=== PATIENT | female | born 1955 | race Caucasian/White ===

== ENCOUNTER 2017-11-22 06:45 | Observation (INO) | payer BC ==
[2017-11-22 07:23] LABS: CHLORIDE,CL 102 mEq/L (98-106); SODIUM,NA 141 mEq/L (136-145)
--- NOTE | 2017-11-22 07:31 | EDM.PDOC ---
ED HPI GENERAL MEDICAL PROBLEM - General Chief Complaint: Chest Pain Stated Complaint: pressure, ? [place] Time Seen by Provider: 11/22/17 07:04 Source of Information: Reports: Patient History Limitations: Reports: No Limitations - History of Present Illness INITIAL COMMENTS - FREE TEXT/NARRATIVE: This patient is a 62 year old female that presents to the ER. Patient reports that started about 3 days ago with achy pressure in her middle back between the shouder blades. She reports the pressure sensation wrapped around bilateral sides into her chest. She reports the pain is also to the left neck, this pain is easily manipulated with ROM of the neck. Patient reports that she has also been nauseated the last 3 days. Patient reports that the pain comes and goes, waxes and wanes. She reports the pain yesterday afternoon while in her kitchen was a 8/10. She reports that she does drink alcohol about 3 cocktails a day. She denies smoking. She reports history of HTN and high cholesterol. She reports that she has history of ulcer several years ago. The patient is alert and oriented. She is conversing in full and complete sentences without difficulty. The patient reports her pain in the ER is 2 out of 10 on scale. The patient does report she has had pain in Epigastric region that feels like pressure, gnawing, and acid reflux she reports. She reports this has been there for about 3 days when this other pain began as well per patient. She reports she has also had diarrhea for about 2 weeks. Onset Date: 11/19/17 Duration: Day(s): (3) Location: Reports: Chest, Abdomen, Back Quality: Reports: Pressure Severity: Mild Improves with: Reports: None Worsens with: Reports: None Associated Symptoms: Reports: Chest Pain. Denies: Confusion, Cough, cough w sputum Upper Back Pain Score (Numeric/FACES): 3 - Related Data Allergies Allergy/AdvReac Type Severity Reaction Status Date / Time No Known Allergies Allergy Verified 11/22/17 06:50 Home Meds: Home Meds . [No Known Home Meds] 11/22/17 [History] Past Medical History - Past Surgical History GI Surgical History: Reports: Appendectomy, Cholecystectomy Female Surgical History: Reports: Hysterectomy Social & Family History - Tobacco Use Smoking Status *Q: Former Smoker Used Tobacco, but Quit: Yes Month/Year Tobacco Last Used: 08/2017 - Caffeine Use Caffeine Use: Reports: Coffee - Alcohol Use Days Per Week of Alcohol Use: 7 Number of Drinks Per Day: 7 Total Drinks Per Week: 49 - Recreational Drug Use Recreational Drug Use: No ED ROS GENERAL - Review of Systems Review Of Systems: See Below Constitutional: Reports: No Symptoms HEENT: Reports: No Symptoms Respiratory: Reports: No Symptoms. Denies: Shortness of Breath Cardiovascular: Reports: Chest Pain. Denies: Dyspnea on Exertion, Edema, Lightheadedness, Palpitations, Syncope Endocrine: Reports: No Symptoms GI/Abdominal: Reports: Abdominal Pain (Epigastric), Diarrhea, Nausea. Denies: Black Stool, Bloody Stool, Constipation, Decreased Appetite, Difficulty Swallowing, Distension, Stool Incontinence, Vomiting : Reports: No Symptoms Musculoskeletal: Reports: Neck Pain (left lateral neck), Back Pain (between shoulder blades) Skin: Reports: No Symptoms Neurological: Reports: No Symptoms Psychiatric: Reports: No Symptoms Hematologic/Lymphatic: Reports: No Symptoms Immunologic: Reports: No Symptoms ED EXAM, GENERAL - Physical Exam Exam: See Below Exam Limited By: No Limitations General Appearance: Alert, WD/WN, No Apparent Distress Eye Exam: Bilateral Eye: Normal Inspection, PERRL Ears: Normal External Exam, Normal Canal, Hearing Grossly Normal, Normal TMs Ear Exam: Bilateral Ear: Auricle Normal, Canal Normal, TM normal Nose: Normal Inspection, Normal Mucosa, No Blood Throat/Mouth: Normal Inspection, Normal Lips, Normal Teeth, Normal Gums, Normal Oropharynx, Normal Voice, No Airway Compromise Head: Atraumatic, Normocephalic Neck: Normal Inspection, Supple, Non-Tender, Full Range of Motion, Other (Pain of the left lateral neck is made worse with ROM. Easily manipulated on exam. ) Respiratory/Chest: No Respiratory Distress, Lungs Clear, Normal Breath Sounds, No Accessory Muscle Use, Chest Non-Tender Cardiovascular: Normal Peripheral Pulses, Regular Rate, Rhythm, No Edema, No Gallop, No JVD, No Murmur, No Rub GI/Abdominal: Normal Bowel Sounds, Soft, No Organomegaly, No Distention, No Abnormal Bruit, No Mass, Pelvis Stable, Tender (Epigastric). No: Guarding, Rebound, Hernia, Hepatomegaly, Splenomegaly (Female) Exam: Deferred Rectal (Female) Exam: Deferred Back Exam: Normal Inspection, Full Range of Motion. No: CVA Tenderness (L), CVA Tenderness (R), Decreased Range of Motion, Muscle Spasm, Paraspinal Tenderness, Vertebral Tenderness Extremities: Normal Inspection, Normal Range of Motion, Non-Tender, No Pedal Edema, Normal Capillary Refill Neurological: Alert, Oriented, Normal Cognition, Normal Gait, No Motor/Sensory Deficits Psychiatric: Normal Affect, Normal Mood Skin Exam: Warm, Dry, Intact, Normal Color, No Rash Lymphatic: No Adenopathy EKG INTERPRETATION EKG Date: 11/22/17 Time: 06:46 Rhythm: NSR Rate (Beats/Min): 81 [place]: Normal ST-T: Normal QT: Normal Comparison: NA - No Prior EKG Course - Vital Signs Last Recorded V/S: Last Vital Signs Temp 96.3 F 11/22/17 06:50 Pulse 98 11/22/17 10:16 Resp 18 11/22/17 10:16 BP 172/88 H 11/22/17 10:16 Pulse Ox 98 11/22/17 10:16 - Orders/Labs/Meds Orders: Active Orders 24 hr Category Date Time Status Patient Status [ADT] Routine ADT 11/22/17 16:01 Active Ambulate [RC] ASDIRECTED Care 11/22/17 16:01 Active Ambulate [RC] PER UNIT ROUTINE Care 11/22/17 16:01 Active EKG Documentation Completion [RC] STAT Care 11/22/17 12:55 Active Notify Provider Vital Signs [RC] ASDIRECTED Care 11/22/17 16:01 Active Oxygen Therapy [RC] PRN Care 11/22/17 16:01 Active VTE/DVT Education [RC] PER UNIT ROUTINE Care 11/22/17 16:01 Active Vital Signs [RC] Q4H Care 11/22/17 16:01 Active Clear Liquid Diet [DIET] Diet 11/22/17 Dinner Active Abdomen Pelvis w Cont [CT] Stat Exams 11/22/17 13:10 Taken Chest 2V [CR] Stat Exams 11/22/17 06:57 Taken C-REACTIVE PROTEIN [CHEM] DAILY Lab 11/23/17 05:00 Ordered CBC WITH AUTO DIFF [HEME] DAILY Lab 11/23/17 05:00 Ordered CBC WITH AUTO DIFF [HEME] DAILY Lab 11/24/17 05:00 Ordered COMPREHENSIVE METABOLIC PN,CMP [CHEM] DAILY Lab 11/23/17 05:00 Ordered URINALYSIS W/MICROSCOPIC [UA W/MICROSCOPIC] [URIN] Stat Lab 11/22/17 07:36 Ordered Enoxaparin [Lovenox] Med 11/22/17 16:00 Active 40 mg SUBCUT Q24H Morphine Med 11/22/17 16:01 Active 2 mg IVPUSH Q2H PRN Ondansetron [Zofran] Med 11/22/17 16:01 Active 4 mg IV Q6H PRN Pantoprazole [ProTONIX IV] 80 mg Med 11/22/17 16:01 Active Sodium Chloride 0.9% [Normal Saline] 100 ml IV .CONTINUOUS Sodium Chloride 0.9% [Normal Saline] 1,000 ml Med 11/22/17 16:01 Active IV ASDIRECTED Resuscitation Status Routine Resus Stat 11/22/17 15:38 Ordered Medication Orders Enoxaparin Sodium (Lovenox) 40 mg SUBCUT Q24H ARIC Pantoprazole Sodium 80 mg/ (Sodium Chloride) 100 mls @ 10 mls/hr IV .CONTINUOUS ARIC Sodium Chloride (Normal Saline) 1,000 mls @ 90 mls/hr IV ASDIRECTED ARIC Morphine Sulfate (Morphine) 2 mg IVPUSH Q2H PRN PRN Reason: Pain (severe 7-10) Ondansetron HCl (Zofran) 4 mg IV Q6H PRN PRN Reason: Nausea/Vomiting Labs: Laboratory Tests 11/22/17 11/22/17 11/22/17 Range/Units 06:50 06:57 06:57 WBC 12.6 H (5.0-10.0) 10^3/uL RBC 4.53 (4.00-5.50) 10^6/uL Hgb 14.9 (12.0-16.0) g/dL Hct 44.5 (37.0-47.0) % MCV 98.2 H (82.0-94.0) fL MCH 32.9 H (27.0-32.0) pg MCHC 33.5 (33.0-38.0) g/dL RDW Coeff of Jacqueline 13.8 (11.0-15.0) % Plt Count 358 (150-400) 10^3/uL Neut % (Auto) 74.4 (35-85) % Lymph % (Auto) 17.8 (10-55) % [place] % (Auto) 6.0 (0-16) % Eos % (Auto) 1.6 (0-5) % Baso % (Auto) 0.2 (0-3) % Neut # (Auto) 9.33 H (1.80-7.00) 10^3/uL Lymph # (Auto) 2.24 (1.00-4.80) 10^3/uL [place] # (Auto) 0.75 (0.00-0.80) 10^3/uL Eos # (Auto) 0.20 (0.00-0.45) 10^3/uL Baso # (Auto) 0.03 10^3/uL PT 9.7 (9.7-12.3) SEC INR 0.93 (0.92-1.18) D-Dimer, Quantitative < 0.19 (0.00-0.50) Sodium 141 (136-145) mEq/L Potassium 4.1 (3.5-5.0) mEq/L Chloride 102 (98-106) mEq/L Carbon Dioxide 29 (21-32) mmol/L BUN 12 (7-18) mg/dL Creatinine 0.9 (0.6-1.0) mg/dL Est Cr Clr Drug Dosing 47.65 mL/min Estimated GFR (MDRD) > 60 (>=60) mL/min Glucose 134 H (75-99) mg/dL Calcium 8.9 (8.4-10.1) mg/dL Lactate Dehydrogenase 220 H (100-190) U/L Creatine Kinase 86 (21-215) U/L Troponin I < 0.017 (0.00-0.06) ng/mL Amylase 54 (25-115) U/L Urine Color (YELLOW) Urine Appearance (CLEAR) Urine pH (4.5-8.0) Ur Specific Outing (1.003-1.020) Urine Protein (NEGATIVE) mg/dL Urine Glucose (UA) (NEGATIVE) mg/dL Urine Ketones (NEGATIVE) mg/dL Urine Occult Blood (NEGATIVE) Urine Nitrite (NEGATIVE) Urine Bilirubin (NEGATIVE) Urine Urobilinogen (0.2-1.0) EU/dL Ur Leukocyte Esterase (NEGATIVE) Urine RBC (0-5) /HPF Urine WBC (0-5) /HPF 11/22/17 11/22/17 11/22/17 Range/Units 07:36 09:08 11:00 WBC (5.0-10.0) 10^3/uL RBC (4.00-5.50) 10^6/uL Hgb (12.0-16.0) g/dL Hct (37.0-47.0) % MCV (82.0-94.0) fL MCH (27.0-32.0) pg MCHC (33.0-38.0) g/dL RDW Coeff of Jacqueline (11.0-15.0) % Plt Count (150-400) 10^3/uL Neut % (Auto) (35-85) % Lymph % (Auto) (10-55) % [place] % (Auto) (0-16) % Eos % (Auto) (0-5) % Baso % (Auto) (0-3) % Neut # (Auto) (1.80-7.00) 10^3/uL Lymph # (Auto) (1.00-4.80) 10^3/uL [place] # (Auto) (0.00-0.80) 10^3/uL Eos # (Auto) (0.00-0.45) 10^3/uL Baso # (Auto) 10^3/uL PT (9.7-12.3) SEC INR (0.92-1.18) D-Dimer, Quantitative (0.00-0.50) Sodium (136-145) mEq/L Potassium (3.5-5.0) mEq/L Chloride (98-106) mEq/L Carbon Dioxide (21-32) mmol/L BUN (7-18) mg/dL Creatinine (0.6-1.0) mg/dL Est Cr Clr Drug Dosing mL/min Estimated GFR (MDRD) (>=60) mL/min Glucose (75-99) mg/dL Calcium (8.4-10.1) mg/dL Lactate Dehydrogenase (100-190) U/L Creatine Kinase (21-215) U/L Troponin I < 0.017 < 0.017 (0.00-0.06) ng/mL Amylase (25-115) U/L Urine Color Yellow (YELLOW) Urine Appearance Clear (CLEAR) Urine pH 6.0 (4.5-8.0) Ur Specific Outing 1.025 H (1.003-1.020) Urine Protein Negative (NEGATIVE) mg/dL Urine Glucose (UA) Negative (NEGATIVE) mg/dL Urine Ketones Negative (NEGATIVE) mg/dL Urine Occult Blood Negative (NEGATIVE) Urine Nitrite Negative (NEGATIVE) Urine Bilirubin Negative (NEGATIVE) Urine Urobilinogen 0.2 (0.2-1.0) EU/dL Ur Leukocyte Esterase Negative (NEGATIVE) Urine RBC Not seen (0-5) /HPF Urine WBC Not seen (0-5) /HPF Meds: Medications Generic Name Dose Route Start Last Admin Trade Name Freq PRN Reason Stop Dose Admin Enoxaparin Sodium 40 mg 11/22/17 16:00 Lovenox SUBCUT Q24H ARIC Pantoprazole Sodium 80 mg/ 100 mls @ 10 mls/hr 11/22/17 16:01 Sodium Chloride IV .CONTINUOUS ARIC Sodium Chloride 1,000 mls @ 90 mls/hr 11/22/17 16:01 Normal Saline IV ASDIRECTED [facility] Morphine Sulfate 2 mg 11/22/17 16:01 Morphine IVPUSH Q2H PRN Pain (severe 7-10) Ondansetron HCl 4 mg 11/22/17 16:01 Zofran IV Q6H PRN Nausea/Vomiting Discontinued Medications Generic Name Dose Route Start Last Admin Trade Name Freq PRN Reason Stop Dose Admin Iopamidol 100 ml 11/22/17 13:31 11/22/17 13:41 Isovue-300 (61%) IVPUSH 11/22/17 13:32 100 ml ONETIME ONE Administration Morphine Sulfate 4 mg 11/22/17 11:33 11/22/17 11:52 Morphine IVPUSH 11/22/17 11:34 4 mg ONETIME ONE Administration Morphine Sulfate 4 mg 11/22/17 13:13 11/22/17 13:25 Morphine IVPUSH 11/22/17 13:14 4 mg ONETIME ONE Administration Ondansetron HCl 4 mg 11/22/17 11:33 11/22/17 11:53 Zofran IVPUSH 11/22/17 11:34 4 mg NOW STA Administration Ondansetron HCl 4 mg 11/22/17 13:13 11/22/17 13:25 Zofran IVPUSH 11/22/17 13:14 4 mg NOW STA Administration Pantoprazole Sodium 80 mg 11/22/17 08:04 11/22/17 09:12 Protonix Iv IVPUSH 11/22/17 08:05 80 mg ONETIME ONE Administration Sucralfate 1 gm 11/22/17 11:33 11/22/17 11:52 Carafate PO 11/22/17 11:34 1 gm ONETIME ONE Administration - Radiology Interpretation Free Text/Narrative:: CXR: No acute findings. - Re-Assessments/Exams Free Text/Narrative Re-Assessment/Exam: 11/22/17 08:05 Patient pain described in epigastric region with gnawing and nausea to the back. Patent has mild wbc elevation. I will ct the patient due to these findings. Ulcer is strong possible diagnosis. Perforation is less likely, but possible. Her BP is elevated, HR is normal. Vitals stable. The patient pain is easily manipulated by palpating the epigastric region. I do not believe this cardiac in nature with pain being manipulated. 11/22/17 08:09 The patient has refused the CT scan. So, at this time will treat as ulcer. I will give her Protonix IV. I will redraw timed cardiac enzymes of troponin. If these are negative, will discharge home. Will educate patient to return for , worsening of conditions, or any other concerns. I will have her see her PCP for close followup on Friday or GI for possible Ulcer. Explained to the patient risks of not having CT. I encouraged her to have this test, but she refuses. 11/22/17 12:42 Patient reports after Carafate, Zofran, Morphine that her pain is completely resolved. She has had three negative troponins. I will discharge patient. 11/22/17 13:32 The patient now at discharge reports he pain has returned and is a 9/10. I have talked to the patient again. Again, I encourage her to have a CT scan performed. Now, she will have this test done. She has agreed to have it done. I have given the patient more pain medication, delayed her discharge, and will CT. Patient reports she believed the Carafate made her pain worse. 11/22/17 15:33 I have reviewed patients ct report with radiologist. The patient has told me that she does not want to know about ct results if any cancer concerns are involved. She has stressed that she does not want me to tell her this information. I will allow her PCP to discuss further results with patient. So, I have told her that she has a fatty liver on ct and no other explanation for her epigastric pain at this time via CT. I did tell her that I believe ulcer is a possibility for her pain. I did offer her admission due to her return of pain. I feel that if she goes home, pain will return and she will return to the ER. The patient reports that she does not see doctors or take medications because she does not want to know anything bad with her health. She has accepted admission. Patient did attempt to eat toast and reported it made her nauseated. Departure - Departure Time of Disposition: 12:39 Disposition: Refer to Observation Condition: Fair Clinical Impression: Esophagitis, Atypical chest pain, Peptic ulcer Abdominal pain Qualifiers: Abdominal location: epigastric Qualified Code(s): R10.13 - Epigastric pain - My Orders Last 24 Hours: My Active Orders 11/22/17 06:57 Chest 2V [CR] Stat 11/22/17 07:36 URINALYSIS W/MICROSCOPIC [UA W/MICROSCOPIC] [URIN] Stat 11/22/17 12:55 EKG Documentation Completion [RC] STAT 11/22/17 13:10 Abdomen Pelvis w Cont [CT] Stat 11/22/17 15:38 Resuscitation Status Routine 11/22/17 16:00 Enoxaparin [Lovenox] 40 mg SUBCUT Q24H 11/22/17 16:01 Patient Status [ADT] Routine Ambulate [RC] ASDIRECTED Ambulate [RC] PER UNIT ROUTINE Notify Provider Vital Signs [RC] ASDIRECTED Oxygen Therapy [RC] PRN VTE/DVT Education [RC] PER UNIT ROUTINE Vital Signs [RC] Q4H Morphine 2 mg IVPUSH Q2H PRN Ondansetron [Zofran] 4 mg IV Q6H PRN Pantoprazole [ProTONIX IV] 80 mg Sodium Chloride 0.9% [Normal Saline] 100 ml IV .CONTINUOUS Sodium Chloride 0.9% [Normal Saline] 1,000 ml IV ASDIRECTED 11/22/17 Dinner Clear Liquid Diet [DIET] 11/23/17 05:00 C-REACTIVE PROTEIN [CHEM] DAILY CBC WITH AUTO DIFF [HEME] DAILY COMPREHENSIVE METABOLIC PN,CMP [CHEM] DAILY 11/24/17 05:00 CBC WITH AUTO DIFF [HEME] DAILY - Assessment/Plan Last 24 Hours: My Active Orders 11/22/17 06:57 Chest 2V [CR] Stat 11/22/17 07:36 URINALYSIS W/MICROSCOPIC [UA W/MICROSCOPIC] [URIN] Stat 11/22/17 12:55 EKG Documentation Completion [RC] STAT 11/22/17 13:10 Abdomen Pelvis w Cont [CT] Stat 11/22/17 15:38 Resuscitation Status Routine 11/22/17 16:00 Enoxaparin [Lovenox] 40 mg SUBCUT Q24H 11/22/17 16:01 Patient Status [ADT] Routine Ambulate [RC] ASDIRECTED Ambulate [RC] PER UNIT ROUTINE Notify Provider Vital Signs [RC] ASDIRECTED Oxygen Therapy [RC] PRN VTE/DVT Education [RC] PER UNIT ROUTINE Vital Signs [RC] Q4H Morphine 2 mg IVPUSH Q2H PRN Ondansetron [Zofran] 4 mg IV Q6H PRN Pantoprazole [ProTONIX IV] 80 mg Sodium Chloride 0.9% [Normal Saline] 100 ml IV .CONTINUOUS Sodium Chloride 0.9% [Normal Saline] 1,000 ml IV ASDIRECTED 11/22/17 Dinner Clear Liquid Diet [DIET] 11/23/17 05:00 C-REACTIVE PROTEIN [CHEM] DAILY CBC WITH AUTO DIFF [HEME] DAILY COMPREHENSIVE METABOLIC PN,CMP [CHEM] DAILY 11/24/17 05:00 CBC WITH AUTO DIFF [HEME] DAILY Plan: PLEASE SEE RN NOTE FOR PFSH. PLEASE USE ER H&P ADMIT H&P.
[2017-11-22] MEDS ORDERED: Pantoprazole 40 MG Vial IVPUSH ONE (08:04)
[2017-11-22] MEDS ORDERED: Morphine 4 MG/ML Syringe IVPUSH ONE ×2 (11:33→13:13)
[2017-11-22] MEDS ORDERED: Ondansetron 4 MG/2 ML SDV IVPUSH STA ×2 (11:33→13:13)
[2017-11-22] MEDS ORDERED: Sucralfate Suspension 1 GM/10 ML Cup PO ONE (11:33)
[2017-11-22] MEDS ORDERED: Iopamidol 612 MG/ML 100 ML Bottle IVPUSH ONE (13:31)
[2017-11-22] MEDS ORDERED: Enoxaparin 40 MG/0.4 ML Syringe SUBCUT SCH (16:00)
[2017-11-22] MEDS ORDERED: Morphine 2 MG/ML Syringe IVPUSH PRN (16:01)
[2017-11-22] MEDS ORDERED: Ondansetron 4 MG/2 ML SDV IV PRN (16:01)
[2017-11-22] MEDS: Pantoprazole 80 MG in Sodium Chloride 0.9% 100 ML IV SCH (17:29)
[2017-11-22] MEDS: Sodium Chloride 0.9% 1,000 ML IV SCH (17:30)
[2017-11-23] MEDS: Sodium Chloride 0.9% 1,000 ML IV SCH (04:46)
[2017-11-23] MEDS: Pantoprazole 80 MG in Sodium Chloride 0.9% 100 ML IV SCH (04:53)
[2017-11-23 08:28] LABS: CHLORIDE,CL 106 mEq/L (98-106); SODIUM,NA 142 mEq/L (136-145)
--- NOTE | 2017-11-23 10:05 | PCM.DCSUM1 ---
Discharge Summary - Hospital Course HPI Initial Comments: This patient is a 62 year old female that was admitted yesterday for uncontrolled abdominal pain. She had pain to the epigastric region that was made worse with eating, and palpation of the epigastric region. The patient today has improvmement in labs. Her labs today are unremarkable. The patient was placed on a protonix gtt. I believe she has a ulcer. Her diet was also changed to clear liquid. She reports this morning that her pain is completely resolved. She reports that she has had zero pain since yesterday. She reports she believes the Protonix gtt and diet change has been what has helped her. She reports she has not felt this good in weeks. She reports that she is ready to go home. She does not want to stay for admit continued. She reports that she will see her PCP on Friday. I have educated the patient that she may return to the ER for worsening of condition or any other emergent concerns. - Discharge Data Discharge Date: 11/23/17 Discharge Disposition: Home, Self-Care 01 Condition: Good - Patient Instructions Diet: Clear Liquid Diet Activity: As Tolerated Showering/Bathing: November Shower Notify Provider of: Fever, Increased Pain, Nausea and/or Vomiting - Discharge Plan Home Medications: Home Meds . [No Known Home Meds] 11/22/17 [History] Forms: ED Department Discharge Referrals: Ad Carrington MD [Primary Care Provider] - - Discharge Summary/Plan Comment DC Time >30 min.: No - General Info Functional Status: Reports: Pain Controlled - Review of Systems General: Reports: No Symptoms HEENT: Reports: No Symptoms Pulmonary: Reports: No Symptoms Cardiovascular: Reports: No Symptoms Gastrointestinal: Reports: No Symptoms Genitourinary: Reports: No Symptoms Musculoskeletal: Reports: No Symptoms Skin: Reports: No Symptoms Neurological: Reports: No Symptoms Psychiatric: Reports: No Symptoms - Patient Data Vitals - Most Recent: Last Vital Signs Temp 97.6 F 11/23/17 08:00 Pulse 95 11/23/17 08:00 Resp 20 11/23/17 08:00 BP 163/83 H 11/23/17 08:00 Pulse Ox 97 11/23/17 08:00 Weight - Most Recent: 141 lb 4.8 oz I&O - Last 24 hours: Intake & Output 11/22/17 11/23/17 11/23/17 22:59 06:59 14:59 Intake Total 1000 Balance 1000 Lab Results - Last 24 hrs: Laboratory Results - last 24 hr 11/22/17 11/23/17 11/23/17 Range/Units 11:00 07:40 07:40 WBC 7.4 (5.0-10.0) 10^3/uL RBC 3.86 L (4.00-5.50) 10^6/uL Hgb 13.0 (12.0-16.0) g/dL Hct 38.3 (37.0-47.0) % MCV 99.2 H (82.0-94.0) fL MCH 33.7 H (27.0-32.0) pg MCHC 33.9 (33.0-38.0) g/dL RDW Coeff of Jacqueline 13.6 (11.0-15.0) % Plt Count 292 (150-400) 10^3/uL Neut % (Auto) 66.9 (35-85) % Lymph % (Auto) 22.2 (10-55) % [place] % (Auto) 8.6 (0-16) % Eos % (Auto) 2.2 (0-5) % Baso % (Auto) 0.1 (0-3) % Neut # (Auto) 4.96 (1.80-7.00) 10^3/uL Lymph # (Auto) 1.65 (1.00-4.80) 10^3/uL [place] # (Auto) 0.64 (0.00-0.80) 10^3/uL Eos # (Auto) 0.16 (0.00-0.45) 10^3/uL Baso # (Auto) 0.01 10^3/uL Sodium 142 (136-145) mEq/L Potassium 4.3 (3.5-5.0) mEq/L Chloride 106 (98-106) mEq/L Carbon Dioxide 31 (21-32) mmol/L BUN 7 (7-18) mg/dL Creatinine 0.9 (0.6-1.0) mg/dL Est Cr Clr Drug Dosing 59.12 mL/min Estimated GFR (MDRD) > 60 (>=60) mL/min Glucose 112 H (75-99) mg/dL Calcium 7.8 L (8.4-10.1) mg/dL Total Bilirubin 0.4 (0.0-1.0) mg/dL AST 20 (15-37) U/L ALT 28 (12-78) U/L Alkaline Phosphatase 57 (46-116) U/L Troponin I < 0.017 (0.00-0.06) ng/mL C-Reactive Protein < 0.2 L (0.2-0.8) mg/dL Total Protein 6.2 L (6.4-8.2) g/dL Albumin 3.1 L (3.4-5.0) g/dL Med Orders - Current: Current Medications Enoxaparin Sodium (Lovenox) 40 mg SUBCUT Q24H ARIC Last Admin: 11/22/17 17:30 Dose: 40 mg Pantoprazole Sodium 80 mg/ (Sodium Chloride) 100 mls @ 10 mls/hr IV .CONTINUOUS ARIC Last Admin: 11/23/17 04:53 Dose: 10 mls/hr Sodium Chloride (Normal Saline) 1,000 mls @ 90 mls/hr IV ASDIRECTED ARIC Last Admin: 11/23/17 04:46 Dose: 90 mls/hr Morphine Sulfate (Morphine) 2 mg IVPUSH Q2H PRN PRN Reason: Pain (severe 7-10) Ondansetron HCl (Zofran) 4 mg IV Q6H PRN PRN Reason: Nausea/Vomiting Discontinued Medications Iopamidol (Isovue-300 (61%)) 100 ml IVPUSH ONETIME ONE Stop: 11/22/17 13:32 Last Admin: 11/22/17 13:41 Dose: 100 ml Morphine Sulfate (Morphine) 4 mg IVPUSH ONETIME ONE Stop: 11/22/17 11:34 Last Admin: 11/22/17 11:52 Dose: 4 mg Morphine Sulfate (Morphine) 4 mg IVPUSH ONETIME ONE Stop: 11/22/17 13:14 Last Admin: 11/22/17 13:25 Dose: 4 mg Ondansetron HCl (Zofran) 4 mg IVPUSH NOW STA Stop: 11/22/17 11:34 Last Admin: 11/22/17 11:53 Dose: 4 mg Ondansetron HCl (Zofran) 4 mg IVPUSH NOW STA Stop: 11/22/17 13:14 Last Admin: 11/22/17 13:25 Dose: 4 mg Pantoprazole Sodium (Protonix Iv) 80 mg IVPUSH ONETIME ONE Stop: 11/22/17 08:05 Last Admin: 11/22/17 09:12 Dose: 80 mg Sucralfate (Carafate) 1 gm PO ONETIME ONE Stop: 11/22/17 11:34 Last Admin: 11/22/17 11:52 Dose: 1 gm - Exam General: Reports: Alert, Oriented, Cooperative, No Acute Distress Lungs: Reports: Clear to Auscultation, Normal Respiratory Effort Cardiovascular: Reports: Regular Rate, Regular Rhythm, No Murmurs GI/Abdominal Exam: Normal Bowel Sounds, Soft, Non-Tender, No Organomegaly, No Distention, No Abnormal Bruit, No Mass, Pelvis Stable (Female) Exam: Deferred Rectal (Female) Exam: Deferred Back Exam: Reports: Normal Inspection, Full Range of Motion Extremities: Normal Inspection, Normal Range of Motion, Non-Tender, No Pedal Edema, Normal Capillary Refill Skin: Reports: Warm, Dry, Intact Neurological: Reports: No New Focal Deficit Psy/Mental Status: Reports: Alert, Normal Affect, Normal Mood
== END 2017-11-23 10:40 | disposition home or self-care (01) ==
LOC: CC.ED 06:45 → CC.MS 15:38 → CC.ED 15:52 → UNDOADMOB 15:57 → CC.MS 15:57 → UNDODISOB 11-23 10:40
PROVIDERS: ADMIT Nurse Practitioner; ATTEND Family Medicine
DX: R10.13 Epigastric pain (principal); I10 Essential (primary) hypertension; E78.00 Pure hypercholesterolemia, unspecified; K21.9 Gastro-esophageal reflux disease without esophagitis; Z90.49 Acquired absence of other specified parts of digestive tract; Z90.710 Acquired absence of both cervix and uterus; Z87.891 Personal history of nicotine dependence
CPT/HCPCS: 36415; 71046; 74177; 80048; 80053; 81001; 82150; 82550; 83615; 84484; 85025; 85379; 85610; 86140; 93005; 96374; 96375; 96376; 99285; A9270; C9113; J1650; J2270; J2405; J7030; J7050; Q9967; 96365; 96366; 96372; G0378